=== PATIENT | female | born 1995 ===

== ENCOUNTER 2017-01-16 09:46 | Emergency (ER) | payer MEDICAID ==
[2017-01-16 09:46] VITALS: BMI 46.7
[2017-01-16 10:02] VITALS: BP 151/78; PULSE 83; RESP 20; TEMP 98.1; O2SAT 99
--- NOTE | 2017-01-16 11:38 | ED PDOC ---
HPI: Female Pain Chief Complaint (Provider): bilateral lower abdominal ''pulling'' History Per: Patient History/Exam Limitations: no limitations Onset/Duration Of Symptoms: Days, Waxing/Waning Current Symptoms Are (Timing): Better Severity: Mild Pain Scale Rating Of: 5 Quality Of Discomfort: Dull, Other (pulling sensation) Associated Symptoms: denies: Fever, Chills, Nausea, Vomiting, Diarrhea, Loss Of Appetite, Back Pain, Chest Pain, Constipation, Urinary Symptoms Alleviating Factors: None Additional History Per: Patient Additional Complaint(s): 21 y/o healthy F presenting for evaluation of ongoing lower abdominal pulling x 1 month. Patient was seen at [facility] ER 01/15, 12/31 with similar complaints and has since been seen by CODING ADVISOR Dr Pickard in clinic. Patient states abdominal pulling was associated with dysfunctional uterine bleeding earlier this month but has since resolved after initiating OCP Noretel as per Dr Pickard. Patient also has a CODING ADVISOR follow up scheduled 01/20/17. Has returned to ED because the '' pulling sensation'' in lower abdominal region is continuing. Denies f/c/n/v/cp/sob/dysuria/ hematuria/ hematochezia/baginal bleeding or abnormal discharge. Denies being currently sexually active, denies h/o STIs LMP 12/31/16 CODING ADVISOR: Dr Fowler Abnormal Vaginal Bleeding: No Last Menstral Period: 12/31/16 <Flip Trotter F - Last Filed: 01/16/17 15:27> <Mariana You A - Last Filed: 01/23/17 10:24> Chief Complaint (Nursing): Back Pain Past Medical History Vital Signs: Last Vital Signs Temp 98.1 F 01/16/17 10:00 Pulse 83 01/16/17 10:00 Resp 20 01/16/17 10:00 BP 151/78 H 01/16/17 10:00 Pulse Ox 99 01/16/17 10:00 - Family History Family History: States: Unknown Family Hx - Immunization History Hx Tetanus Toxoid Vaccination: No Hx Influenza Vaccination: No Hx Pneumococcal Vaccination: No <Flip Trotter F - Last Filed: 01/16/17 15:27> Vital Signs: Last Vital Signs Temp 98.1 F 01/16/17 10:00 Pulse 83 01/16/17 10:00 Resp 20 01/16/17 10:00 BP 151/78 H 01/16/17 10:00 Pulse Ox 99 01/16/17 14:37 <Mariana You - Last Filed: 01/23/17 10:24> - Home Medications Home Medications: Ambulatory Orders Medication Instructions Recorded Norethindrone-Ethinyl Estrad 1 tab PO DAILY 01/15/17 [Nortrel 35 Mcg-0.5 mg] Ranitidine HCl [Ranitidine 150] 150 mg PO DAILY 01/15/17 - Allergies Allergies/Adverse Reactions: Allergies Allergy/AdvReac Type Severity Reaction Status Date / Time No Known Allergies Allergy Verified 01/15/17 17:13 Review of Systems ROS Statement: Except As Marked, All Systems Reviewed And Found Negative Constitutional: Negative for: Fever, Chills, Malaise, Weight loss Respiratory: Negative for: Cough, Shortness of Breath Gastrointestinal: Negative for: Nausea, Vomiting, Abdominal Pain, Diarrhea, Constipation, Melena, Hematochezia, Hematemesis Genitourinary Female: Positive for: Other (lower abdominal pulling). Negative for: Dysuria, Frequency, Incontinence, Hematuria, Vaginal Discharge, Vaginal Bleeding, Rash Skin: Negative for: Rash Neurological: Negative for: Weakness, Numbness, Confusion, Seizures, Dizziness <Flip Trotter - Last Filed: 01/16/17 15:27> Physical Exam - Physical Exam Skin: Positive for: Normal Color, Warm, Dry. Negative for: Pallor Eye Exam: Positive for: EOMI, PERRL ENT: Positive for: Normal ENT Inspection Neck: Positive for: Painless ROM, Supple Cardiovascular/Chest: Positive for: Regular Rate, Rhythm Respiratory: Positive for: Normal Breath Sounds Gastrointestinal/Abdominal: Positive for: Bowel Sounds, Soft, Tenderness (mild tenderness in LLQ). Negative for: Mass, Distended, Guarding, Rebound Pelvic Exam: Positive for: External Exam Normal, Speculum Exam Normal, No Cerv. Motion Tender, No Masses, Discharge, Lesions Back: Negative for: L CVA Tenderness, R CVA Tenderness Extremity: Positive for: Normal ROM. Negative for: Pedal Edema Neurologic/Psych: Positive for: Alert, Oriented <Flip Trotter - Last Filed: 01/16/17 15:27> - ECG O2 Sat by Pulse Oximetry: 99 - Progress ED Course And Treament: Lower abdominal Discomfort TVUS UA, Urine HCG Pelvic exam benign: GC/chla Cultures taken Re-evaluation Time: 15:29 Condition: Re-examined, Improved <Flip Trotter - Last Filed: 01/16/17 15:27> Medical Decision Making Medical Decision Making: Patient seen by resident and then evaluated by me. She is presenting with recurrent episodes of suprapubic pain. She has had negative workup in past. She reports that she has the sensation of "pulling b/l near her ovaries." She reports that she is concerned because these episodes used to be associated with her heavy menses and is worried her heavy menses will come back. On exam she has soft NT/ND abdomen. Will get ua, poc preg, and pelvic u/s to r/o torsion. Will need to follow-up with ob. 3pm UA negative for infection. Poc negative. US negative for torsion and shows no acute pathology. Instructed to follow-up with PMD <Mariana You - Last Filed: 01/23/17 10:24> Disposition - Disposition Disposition: Routine/Home <Flip Trotter - Last Filed: 01/16/17 15:27> - Disposition Disposition: Routine/Home Disposition Time: 15:16 <Mariana You - Last Filed: 01/23/17 10:24> - Clinical Impression Clinical Impression: Abdominal pain - Disposition Condition: GOOD Additional Instructions: Follow up with PMD within 2 days. Return to ED if condition worsens.
[2017-01-16 15:09] LABS: RBC URINE 15 /hpf (0-3); URINE BACTERIA RARE (<OCC); URINE BILIRUBIN NEGATIVE (NEGATIVE); URINE BLOOD MODERATE (NEGATIVE); URINE COLOR YELLOW (YELLOW); URINE GLUCOSE (UA) NEG (Normal); URINE KETONE NEGATIVE (NEGATIVE); URINE LEUKOCYTE ESTERASE NEG Leu/uL (Negative); URINE PROTEIN NEGATIVE (NEGATIVE); URINE UROBILINOGEN 0.2-1.0 mg/dL (0.2-1.0); WBC URINE 2 /hpf (0-5)
--- NOTE | 2017-01-16 15:53 | US ---
HISTORY: LLQ tenderness, pulling sensation COMPARISON: None available. TECHNIQUE: Endovaginal ultrasound examination of the pelvis was performed. FINDINGS: UTERUS: Measures 5.7 x 4.6 x 3.5 cm. Normal in size and appearance. No fibroid or other mass lesion seen. ENDOMETRIUM: Measures 14.5 mm in diameter. Unremarkable. CERVIX: No cervical abnormality identified. RIGHT OVARY: Measures 2.4 x 3.3 x 3 cm. No solid mass. Normal flow. LEFT OVARY: Measures 2.5 x 1.2 x 2.7 cm. No solid mass. Normal flow. FREE FLUID: No significant free fluid noted. OTHER FINDINGS: None. IMPRESSION: No ultrasound evidence of acute pathology in the uterus and adnexa.
== END 2017-01-16 15:21 | disposition home or self-care (01) ==
LOC: H.ER 09:46
DX: R10.9 Unspecified abdominal pain (principal)

== ENCOUNTER 2017-12-11 19:00 | Emergency (ER) | payer MEDICAID ==
[2017-12-11 19:00] VITALS: BMI 46.7
[2017-12-11 19:09] VITALS: BP 139/95; PULSE 104; RESP 16; TEMP 98.8; O2SAT 100
--- NOTE | 2017-12-11 20:28 | ED PDOC ---
History of Present Illness History of Present Illness: 22yo female, presents to ED for evaluation of cough, sore throat, and nasal congestion. She denies any fever, chills, vomiting, diarrhea or rash. She has no other medical complaints. HPI: Influenza Time Seen by Provider: 12/11/17 19:17 Chief Complaint: Cough, Cold, Congestion Chief Complaint (Provider): Cough History Per: Patient Exam Limitations: no limitations Have you had recent travel within the past 21 days to any of: No Onset/Duration Of Symptoms: Days Symptoms include: cough. denies: fever Past Medical History Reviewed: Historical Data, Nursing Documentation, Vital Signs Vital Signs: Last Vital Signs Temp 98.8 F 12/11/17 19:08 Pulse 104 H 12/11/17 19:08 Resp 16 12/11/17 19:08 BP 139/95 H 12/11/17 19:08 Pulse Ox 100 12/11/17 19:08 - Medical History PMH: No Chronic Diseases - Surgical History Surgical History: No Surg Hx - Family History Family History: States: Unknown Family Hx - Immunization History Hx Tetanus Toxoid Vaccination: No Hx Influenza Vaccination: No Hx Pneumococcal Vaccination: No - Home Medications Home Medications: Ambulatory Orders Medication Instructions Recorded Norethindrone-Ethinyl Estrad 1 tab PO DAILY 01/15/17 [Nortrel 35 Mcg-0.5 mg] Ranitidine HCl [Ranitidine 150] 150 mg PO DAILY 01/15/17 Guaifenesin 400 mg PO QID #20 tablet 12/11/17 Ibuprofen [Motrin Tab] 600 mg PO QID PRN #20 tab 12/11/17 - Allergies Allergies/Adverse Reactions: Allergies Allergy/AdvReac Type Severity Reaction Status Date / Time No Known Allergies Allergy Verified 12/11/17 19:07 Review of Systems ROS Statement: Except As Marked, All Systems Reviewed And Found Negative Constitutional: Negative for: Fever, Chills ENT: Positive for: Nose Congestion, Throat Pain Respiratory: Positive for: Cough Physical Exam - Reviewed Nursing Documentation Reviewed: Yes Vital Signs Reviewed: Yes - Physical Exam Comments: GENERAL APPEARANCE: Patient is awake, alert, oriented x 3, in no acute distress. SKIN: Warm, dry; (-) cyanosis, (-) rash. EYES: (-) conjunctival pallor, (-) scleral icterus, (-) conjunctival hemorrhage. ENMT: Mucous membranes moist. TMs: (-) erythema. Airway patent: (-) stridor. Pharynx: (-) erythema, (-) exudate. NECK: (-) tenderness, (-) stiffness, (-) meningismus, (-) lymphadenopathy. CHEST AND RESPIRATORY: (-) accessory muscle use. Lungs: (-) rales, (-) rhonchi, (-) wheezes, (-) rub; breath sounds equal bilaterally. HEART AND CARDIOVASCULAR: (-) irregularity; (-) murmur, (-) gallop, (-) rub. ABDOMEN AND GI: Soft; (-) tenderness, (-) guarding; (-) organomegaly; (-) mass ; (-) CVA tenderness. EXTREMITIES: (-) deformity; (-) cellulitis, (-) lymphangitis; (-) subungual hemorrhage; (-) edema. NEURO AND PSYCH: Mental status as above; (-) focal findings. Medical Decision Making Medical Decision Making: Impression: Cough, viral illness Plan: -- Advised to follow up with primary care physician in 1-2 days without fail. Advised to take medication as prescribed. Return to the emergency room at any time for any new or worsening symptoms. Patient states she fully agrees with and understands discharge instructions. States that she agrees with the plan and disposition. Verbalized and repeated discharge instructions and plan. I have given the patient opportunity to ask any additional questions. Scribe Attestation: Documented by Garima Quarles acting as a scribe for Krissy Boyce PA-C. Provider Attestation: All medical record entries made by the Scribe were at my direction and personally dictated by me. I have reviewed the chart and agree that the record accurately reflects my personal performance of the history, physical exam, medical decision making, and the department course for this patient. I have also personally directed, reviewed, and agree with the discharge instructions and disposition. - ECG O2 Sat by Pulse Oximetry: 100 Disposition - Clinical Impression Clinical Impression: Cough, Viral illness - Patient ED Disposition Is Patient to be Admitted: No Counseled Patient/Family Regarding: Diagnosis, Need For Followup, Rx Given - Disposition Referrals: [facility] [Outside] Disposition: Routine/Home Disposition Time: 20:15 Condition: STABLE Additional Instructions: Thank you for letting us take care of you today. You were treated for cough, viral illness. The emergency medical care you received today was directed at your acute symptoms. If you were prescribed any medication, please fill it and take as directed. It may take several days for your symptoms to resolve. Return to the Emergency Department if your symptoms worsen, do not improve, or if you have any other problems. Please contact your doctor in 2 days for re-evaluation and follow up / or call one of the physicians/clinics you have been referred to that are listed on the Patient Visit Information form that is included in your discharge packet. Bring any paperwork you were given at discharge with you along with any medications you are taking to your follow up visit. Our treatment cannot replace ongoing medical care by a primary care provider (PCP) outside of the emergency department. Thank you for allowing the [facility] team to be part of your care today. If you had an X-Ray or CT scan: A Radiologist will review the ED reading if any change in treatment is needed we will contact you. Prescriptions: Guaifenesin 400 mg PO QID #20 tablet Ibuprofen [Motrin Tab] 600 mg PO QID PRN #20 tab PRN Reason: Pain, Moderate (4-7) Instructions: Viral Upper Respiratory Infection, Adult (DC) Forms: [employer] (Irish)
== END 2017-12-11 20:13 | disposition home or self-care (01) ==
LOC: H.ER 19:00
DX: B34.9 Viral infection, unspecified (principal); R05 Cough

== ENCOUNTER 2018-04-01 09:04 | Emergency (ER) | payer MEDICAID ==
[2018-04-01 09:05] VITALS: BMI 46.7
[2018-04-01 09:16] VITALS: BP 127/81; PULSE 95; RESP 21; TEMP 98.1; O2SAT 100
--- NOTE | 2018-04-01 10:47 | ED PDOC ---
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 NOTES SHE HAS NO A/C AVAILABLE IN HER UNIT. HAS ADDITIONAL SWELLING LEFT SIDE OF HEAD ONGOING AND TENDER WHEN LAYING ON THAT SIDE OF HER HEAD.) Past Medical History Reviewed: Historical Data, Nursing Documentation, Vital Signs Vital Signs: Last Vital Signs Temp 98.1 F 04/01/18 09:15 Pulse 95 H 04/01/18 09:15 Resp 21 04/01/18 09:15 BP 127/81 04/01/18 09:15 Pulse Ox 100 04/01/18 10:53 - Family History Family History: States: Unknown Family Hx - Immunization History Hx Tetanus Toxoid Vaccination: No Hx Influenza Vaccination: No Hx Pneumococcal Vaccination: No - Home Medications Home Medications: Ambulatory Orders Medication Instructions Recorded Norethindrone-Ethinyl Estrad 1 tab PO DAILY 01/15/17 [Nortrel 35 Mcg-0.5 mg] Ranitidine HCl [Ranitidine 150] 150 mg PO DAILY 01/15/17 Guaifenesin 400 mg PO QID #20 tablet 12/11/17 Ibuprofen [Motrin Tab] 600 mg PO QID PRN #20 tab 12/11/17 - Allergies Allergies/Adverse Reactions: Allergies Allergy/AdvReac Type Severity Reaction Status Date / Time No Known Allergies Allergy Verified 12/11/17 19:07 Review of Systems ROS Statement: Except As Marked, All Systems Reviewed And Found Negative Physical Exam - Reviewed Nursing Documentation Reviewed: Yes Vital Signs Reviewed: Yes - Physical Exam Appears: Positive for: Well, Non-toxic, No Acute Distress Head Exam: Positive for: NORMAL INSPECTION, NORMOCEPHALIC. Negative for: ATRAUMATIC (4 CM SWELLING NOTED LEFT TEMPORAL ASPECT OF HEAD NO SIGNS OF ERYTHEMA) Skin: Positive for: Normal Color, Warm, DRY Eye Exam: Positive for: EOMI, Normal appearance, PERRL ENT: Positive for: Normal ENT Inspection Neck: Positive for: Normal, Painless ROM Cardiovascular/Chest: Positive for: Regular Rate, Rhythm Respiratory: Positive for: CNT, Normal Breath Sounds Gastrointestinal/Abdominal: Positive for: Normal Exam, Soft Back: Positive for: Normal Inspection Extremity: Positive for: Normal ROM Neurologic/Psych: Positive for: Alert, Oriented - Laboratory Results Urine POC: Negative - ECG O2 Sat by Pulse Oximetry: 100 - Progress ED Course And Treament: EKG: NSR 94BPM NO ECTOPY NO ACUTE CHANGES. Disposition - Clinical Impression Clinical Impression: Heat effects, Sebaceous cyst - Patient ED Disposition Is Patient to be Admitted: No - Disposition Referrals: Fredrick Matias MD [Staff Provider] - Disposition: Routine/Home Disposition Time: 10:49 Condition: FAIR Instructions: Epidermal Cyst, Heat Exhaustion and Heat Stroke (DC)
== END 2018-04-01 11:30 | disposition home or self-care (01) ==
LOC: H.ER 09:04
DX: L72.3 Sebaceous cyst (principal); T67.3XXA Heat exhaustion, anhydrotic, initial encounter

== ENCOUNTER 2018-12-24 02:43 | Emergency (ER) | payer MEDICAID ==
[2018-12-24 02:43] VITALS: BMI 46.7
[2018-12-24 03:00] VITALS: O2SAT 100
[2018-12-24] MEDS ORDERED: Sodium Chloride 0.9% 1,000 ML IV STA (03:49)
--- NOTE | 2018-12-24 03:51 | ED PDOC ---
Syncope/Near Syncope/Dizziness Time Seen by Provider: 12/24/18 03:04 Chief Complaint (Nursing): Dizziness/Lightheaded Chief Complaint (Provider): near syncope History Per: Patient History/Exam Limitations: no limitations Onset/Duration Of Symptoms: Hrs Current Symptoms Are (Timing): Gone Now Activity At Onset Of Symptoms: Sitting Additional Complaint(s): 23 y/o female presents for evaluation of near-syncopal episode prior to arrival. Patient states she woke up and went to use the bathroom and once she sat on the toilet she immediately began to feel cold and lightheaded as if she was going to pass out so she threw cold water on herself and symptoms improved. Patient admits to similar episodes in past. Patient denies headache, dizziness, extremity numbness/weakness, chest pain, shortness of breath, palpitations, leg pain/swelling, drug/alcohol use Past Medical History Reviewed: Historical Data, Nursing Documentation, Vital Signs Vital Signs: Last Vital Signs Temp 98.1 F 12/24/18 02:58 Pulse 81 12/24/18 02:58 Resp 17 12/24/18 02:58 BP 137/95 H 12/24/18 02:58 Pulse Ox 100 12/24/18 02:58 - Medical History PMH: Hypothyroidism Other PMH: PCOS - Surgical History Surgical History: No Surg Hx - Family History Family History: States: Unknown Family Hx - Immunization History Hx Tetanus Toxoid Vaccination: No Hx Influenza Vaccination: No Hx Pneumococcal Vaccination: No - Home Medications Home Medications: Ambulatory Orders Medication Instructions Recorded Norethindrone-Ethinyl Estrad 1 tab PO DAILY 01/15/17 [Nortrel 35 Mcg-0.5 mg] Ranitidine HCl [Ranitidine 150] 150 mg PO DAILY 01/15/17 Guaifenesin 400 mg PO QID #20 tablet 12/11/17 Ibuprofen [Motrin Tab] 600 mg PO QID PRN #20 tab 12/11/17 - Allergies Allergies/Adverse Reactions: Allergies Allergy/AdvReac Type Severity Reaction Status Date / Time No Known Allergies Allergy Verified 12/11/17 19:07 Review of Systems ROS Statement: Except As Marked, All Systems Reviewed And Found Negative Physical Exam - Reviewed Nursing Documentation Reviewed: Yes Vital Signs Reviewed: Yes - Physical Exam Appears: Positive for: Well, Non-toxic, No Acute Distress Head Exam: Positive for: ATRAUMATIC, NORMAL INSPECTION, NORMOCEPHALIC Skin: Positive for: Normal Color Eye Exam: Positive for: Normal appearance ENT: Positive for: Normal ENT Inspection Cardiovascular/Chest: Positive for: Regular Rate, Rhythm Respiratory: Positive for: Normal Breath Sounds Gastrointestinal/Abdominal: Positive for: Normal Exam Back: Positive for: Normal Inspection Extremity: Positive for: Normal ROM Neurological/Psych: Positive for: Awake, Alert, Oriented (x3) - Laboratory Results Result Diagrams: 12/24/18 04:20 12/24/18 04:20 - ECG ECG: Positive for: Viewed By Me (reviewed by ED attending) ECG Rhythm: Positive for: Sinus Rhythm O2 Sat by Pulse Oximetry: 100 - Progress ED Course And Treament: -accucheck -cbc -cmp -tsh -ekg -upreg -udip -IV NS bolus Disposition - Clinical Impression Clinical Impression: Near syncope, Elevated liver function tests - Disposition Referrals: Madhuri Frias APN [Primary Care Provider] - Disposition Time: 05:00 Condition: IMPROVED Additional Instructions: follow up with your primary doctor tomorrow for reevaluation your sugar and liver function tests are mildly elevated return to the ED with any worsening or concerning symptoms Instructions: Near Fainting (DC) Forms: [employer] (French) Patient Signed Over To: Ger Dietz Handoff Comments: pending labs and final dispo
--- NOTE | 2018-12-24 04:58 | ED PDOC ---
- Laboratory Results Result Diagrams: 12/24/18 04:20 12/24/18 04:20 - ECG O2 Sat by Pulse Oximetry: 100 Medical Decision Making Medical Decision Making: signout from tigist cantu pending labs noted on labs that lfts and glucose elevated pt made aware and feels improved instructed to follow up with pmd, return if anything worsens pt agreeable to plan Disposition Counseled Patient/Family Regarding: Studies Performed, Diagnosis, Need For Followup - Clinical Impression Clinical Impression: Near syncope, Elevated liver function tests - POA Present On Arrival: None - Disposition Referrals: Madhuri Frias APN [Primary Care Provider] - Disposition: Routine/Home Disposition Time: 06:00 Condition: IMPROVED Additional Instructions: follow up with your primary doctor tomorrow for reevaluation your sugar and liver function tests are mildly elevated return to the ED with any worsening or concerning symptoms Instructions: Near Fainting (DC) Forms: [employer] (Yoruba)
[2018-12-24 05:03] LABS: BASO % 0.4 % (0.0-2.0); EOS # 0.1 K/uL (0.0-0.7); HEMOGLOBIN 11.7 g/dL (12.0-16.0); LYMPH # 1.9 K/uL (1.0-4.3); LYMPH % 25.3 % (20.0-40.0); MEAN CELL VOLUME 78.6 fl (81.0-99.0); MEAN CORPUSCULAR HEMOGLOBIN 25.3 pg (27.0-31.0); MEAN CORPUSCULAR HGB CONC 32.1 g/dL (33.0-37.0); MEAN PLATELET VOLUME 8.4 fl (7.2-11.7); MONO # 0.6 K/uL (0.0-0.8); MONO % 7.4 % (0.0-10.0); NEUT % 65.9 % (50.0-75.0); NRBC % 0.1 % (0.0-0.0); RBC 4.62 Mil/uL (3.80-5.20); RED CELL DISTRIBUTION WIDTH 15.5 % (11.5-14.5); WHITE BLOOD COUNT 7.7 K/uL (4.8-10.8)
[2018-12-24 05:12] LABS: ALB/GLOB RATIO 1.2 (1.0-2.1); ALBUMIN 4.5 g/dL (3.5-5.0); ALT/SGPT 63 U/L (9-52); AST/SGOT 43 U/L (14-36); BLOOD UREA NITROGEN 15 mg/dl (7-17); CALCIUM 9.8 mg/dL (8.4-10.2); GFR NON-AFRICAN AMERICAN > 60
[2018-12-24 06:49] VITALS: BP 139/73; PULSE 76; RESP 18; TEMP 97.7
--- NOTE | 2018-12-24 17:35 | CARD ---
APPROVED REPORT Date of service: 12/24/2018 EKG Measurement Heart [id number] <Conclusion> Normal sinus rhythm with sinus arrhythmia Normal ECG
== END 2018-12-24 06:48 | disposition home or self-care (01) ==
LOC: H.ER 02:43
DX: R55 Syncope and collapse (principal); R94.5 Abnormal results of liver function studies; E03.9 Hypothyroidism, unspecified; E28.2 Polycystic ovarian syndrome
CPT/HCPCS: 80053; 81025; 82948; 84443; 85025; 93005; 96360; 99284; J7030